=== PATIENT | female | born 1985 | race American Indian/Alaskan Native ===

== ENCOUNTER 2016-09-30 09:17 | Observation (INO) | payer MEDICARE, OTHER ==
[2016-09-30 09:43] VITALS: BMI 36.3
[2016-09-30] MEDS ORDERED: ceFAZolin IV 1 gm in Dextrose 1 GM/50 ML BAG IVPB ONE ×2 (10:46→12:43)
[2016-09-30] MEDS ORDERED: HEPARIN-NS 5,000 UNITS/500 ML 5,000 UNIT/500 ML BAG IV ONE (10:46)
[2016-09-30] MEDS ORDERED: Lidocaine 1% Inj (20ml) ONE (10:46)
[2016-09-30 10:52] LABS: CALCIUM 8.8 mg/dl (8.6-10.4)
[2016-09-30] MEDS ORDERED: Propofol 10 mg/ml Inj (20 ML) ONE (12:20)
[2016-09-30] MEDS ORDERED: Midazolam 2 MG/2 ML VIAL ONE (12:20)
[2016-09-30] MEDS ORDERED: Neostigmine Methylsulfate 3mg/3ml Syringe IV ONE (13:38)
[2016-09-30] MEDS ORDERED: Phenylephrine 10 mg/ml Inj ONE (13:42)
[2016-09-30] MEDS ORDERED: ceFAZolin IV 1 gm in Dextrose 2 GM/100 ML BAG IVPB ONE (13:42)
[2016-09-30] MEDS ORDERED: Protamine 50mg/5mL Inj IV ONE (15:10)
[2016-09-30] MEDS ORDERED: Sodium Chloride 0.9% 1,000 ML IV ONE (15:30)
[2016-09-30] MEDS ORDERED: HYDROmorphone 0.5 mg/0.5 ml ISec IVP PRN (15:51)
[2016-09-30] MEDS: Sodium Chloride 0.9% 1,000 ML IV SCH (18:55)
[2016-09-30] MEDS: Oxycodone/Acetaminophen 5/325 mg Tab PO PRN (19:31)
[2016-09-30] MEDS: Enoxaparin 30 mg Syringe SC SCH (21:15)
[2016-10-01] MEDS: Oxycodone/Acetaminophen 5/325 mg Tab PO PRN ×2 (00:18→08:43)
[2016-10-01 01:05] VITALS: RESP 20
--- NOTE | 2016-10-01 01:51 | CP.PCM.CON ---
History of Present Illness - History of Present Illness History of Present Illness: 31 Y/O AUTISTIC BF WITH HTN ESRD AND SHE WAS ADMITTED FOR AV FISTULA AND SHE IS POST OP, AND HAS PAIN AT POST OP SITE, NO FEVER, NO SOB Review of Systems - Review of Systems Systems not reviewed;Unavailable: Uncooperative Past Patient History - Past Medical History & Family History Past Medical History?: Yes - Past Social History Smoking Status: Never Smoked - CARDIAC Hx Cardiac Disorders: Yes Hx Hypertension: Yes - PULMONARY Hx Respiratory Disorders: No - NEUROLOGICAL Hx Neurological Disorder: Yes (AUTISM) - HEENT Hx HEENT Problems: No - RENAL Hx Chronic Kidney Disease: Yes Hx Renal Failure: Yes - ENDOCRINE/METABOLIC Hx Endocrine Disorders: No - HEMATOLOGICAL/ONCOLOGICAL Hx Blood Disorders: No - INTEGUMENTARY Hx Dermatological Problems: No - MUSCULOSKELETAL/RHEUMATOLOGICAL Hx Falls: No - GASTROINTESTINAL Hx Gastrointestinal Disorders: No - GENITOURINARY/GYNECOLOGICAL Hx Genitourinary Disorders: No Other/Comment: history of occassional urinary retention - PSYCHIATRIC Hx Substance Use: No - SURGICAL HISTORY Hx Surgeries: Yes Other/Comment: A/V FISTULA LEFT ARM - ANESTHESIA Hx Anesthesia: Yes Hx Anesthesia Reactions: No Hx Malignant Hyperthermia: No Has any member of the family had a problem w/ anesthesia?: No Meds Allergies/Adverse Reactions: Allergies Allergy/AdvReac Type Severity Reaction Status Date / Time No Known Allergies Allergy Verified 09/20/16 12:27 - Medications Medications: Current Medications Amlodipine Besylate (Norvasc) 5 mg PO DAILY [facility] Docusate Sodium (Colace) 100 mg PO BID [facility] Last Admin: 09/30/16 19:33 Dose: Not Given Enoxaparin Sodium (Lovenox) 30 mg SC 1000,2200 [facility] Last Admin: 09/30/16 21:15 Dose: 30 mg Famotidine (Pepcid) 20 mg PO DAILY [facility] Ferrous Sulfate (Feosol) 325 mg PO DAILY [facility] Sodium Chloride (Sodium Chloride 0.9%) 1,000 mls @ 50 mls/hr IV .Q20H [facility] Last Admin: 09/30/16 18:55 Dose: 50 mls/hr Oxycodone/Acetaminophen (Percocet 5/325 Mg Tab) 2 tab PO Q4H PRN PRN Reason: pain Stop: 10/03/16 15:55 Last Admin: 10/01/16 00:18 Dose: 2 tab Pneumococcal Polyvalent Vaccine (Pneumovax 23 Vaccine) 0.5 ml IM .ONCE ONE Stop: 10/03/16 10:01 Sodium Bicarbonate (Sodium Bicarbonate Tab) 1,300 mg PO TID [facility] Last Admin: 09/30/16 07:30 Dose: 1,300 mg Physical Exam - Head Exam Head Exam: ATRAUMATIC, NORMAL INSPECTION, NORMOCEPHALIC - Eye Exam Eye Exam: EOMI, Normal appearance, PERRL Pupil Exam: NORMAL ACCOMODATION - ENT Exam ENT Exam: Mucous Membranes Moist, Normal Exam, Normal Oropharynx, TM's Normal Bilaterally - Neck Exam Neck exam: Positive for: Normal Inspection - Respiratory Exam Respiratory Exam: Clear to Auscultation Bilateral, NORMAL BREATHING PATTERN - Cardiovascular Exam Cardiovascular Exam: REGULAR RHYTHM, +S1, +S2 - GI/Abdominal Exam GI & Abdominal Exam: Normal Bowel Sounds - Rectal Exam Rectal Exam: NORMAL INSPECTION - Extremities Exam Extremities exam: Positive for: normal capillary refill, normal inspection, pedal edema, pedal pulses present - Neurological Exam Neurological exam: Alert, CN II-XII Intact, Reflexes Normal - Psychiatric Exam Psychiatric exam: Flat Affect - Skin Skin Exam: Intact Results - Vital Signs Recent Vital Signs: Last Vital Signs Temp 99.5 F 10/01/16 00:00 Pulse 81 10/01/16 00:00 Resp 20 10/01/16 00:00 BP 121/83 10/01/16 00:00 Pulse Ox 98 10/01/16 00:00 - Labs Result Diagrams: 09/30/16 10:38 Labs: Laboratory Results - last 24 hr 09/30/16 10:38 Sodium 142 Potassium 4.0 Chloride 109 H Carbon Dioxide 19 L Anion Gap 18 BUN 51 H Creatinine 3.6 H Est GFR ( Amer) 18 Est GFR (Non-Af Amer) 15 Random Glucose 85 Calcium 8.8 Assessment & Plan (1) ESRD (end stage renal disease) Status: Chronic Priority: High (2) Hypertension Status: Chronic Priority: Medium (3) Autism Status: Chronic Priority: Low
[2016-10-01 06:24] LABS: BASO % 0.4 % (0.0-2.0); EOS % 0.7 % (0.0-4.0); HEMATOCRIT 29.9 % (34.0-47.0); LYMPH # 1.7 K/uL (1.0-4.3); LYMPH % 23.2 % (20.0-40.0); MEAN CORPUSCULAR HEMOGLOBIN 30.4 pg (27.0-31.0); MEAN CORPUSCULAR HGB CONC 33.4 g/dL (33.0-37.0); MEAN PLATELET VOLUME 7.1 fL (7.2-11.7); MONO # 0.4 K/uL (0.0-0.8); MONO % 5.9 % (0.0-10.0); RED CELL DISTRIBUTION WIDTH 15.8 % (11.5-14.5); WHITE BLOOD COUNT 7.3 K/uL (4.8-10.8)
--- NOTE | 2016-10-01 06:48 | OP ---
PROCEDURE DATE: 09/30/2016 PREOPERATIVE DIAGNOSIS: Chronic renal failure. POSTOPERATIVE DIAGNOSIS: Chronic renal failure. PROCEDURE: 1. Left arm basilic vein transposition, (15856). 2. Left brachial artery endarterectomy. 3. Adjacent tissue transfer closure greater than 30 sq. cm (35186). SURGEON: Dr. Everett. ANESTHESIA: General endotracheal. ESTIMATED BLOOD LOSS: 80 mL. POSTOPERATIVE CONDITION: Stable. INDICATIONS FOR SURGERY: This is a 31-year-old female with chronic obstructive uropathy, renal failure and now is in need of hemodialysis. She will undergo a left arm basilic vein transposition for dialysis access today. GROSS FINDINGS: The basilic vein was adequate for grafting, even now it split the mid portion. There was atherosclerotic debris within the brachial artery which was removed via modified endarterectomy fashion. Brachial artery was noted to be a very small caliber. DESCRIPTION OF PROCEDURE: The patient was taken to the operating room, general anesthesia was administered. The left arm was prepped and draped from the shoulder to the hand. An incision was made in the axilla and the axillary vein was dissected free and the basilic vein was then dissected free into the elbow. All branches were ligated with silk. Once it had been completely dissected free, we transected distally, removed and flushed with heparinized saline and dilated. It was wrapped in a lapped, soaked in heparinized saline and the arm incisions were closed in layers with multiple layers of heavy Monocryl, subcuticular Monocryl and clips. Due to the large amount of space, an adjacent tissue transfer closure method was utilized by widely undermining and this was greater than 30 sq. cm. Once the wounds have been closed, an incision was made over the brachial artery and the brachial artery was carefully and meticulously dissected free. It was noted to lie deep within the brachial fossa and also there is a very small caliber. The vein was then tunneled into the brachial wound and heparin was administered. The artery was clamped and opened. The atherosclerotic debri was identified and removed with modified endarterectomy fashion. Next, the anastomosis was performed using 6-0 Prolene suture. There was triphasic flow within the vein at the closure of the procedure. The wounds were irrigated with saline and closed with Vicryl and skin clips. The patient tolerated the procedure well and returned to the recovery room in stable condition. Mauri Everett MD [facility] # [id number]
[2016-10-01 06:51] LABS: ALB/GLOB RATIO 0.8 (1.0-2.1); BILIRUBIN,TOTAL 0.4 mg/dL (0.2-1.3); CALCIUM 8.2 mg/dl (8.6-10.4); TOTAL PROTEIN 7.4 g/dL (6.3-8.3)
[2016-10-01] MEDS: Enoxaparin 30 mg Syringe SC SCH (09:42)
--- NOTE | 2016-10-01 11:05 | CP.PCM.CON ---
History of Present Illness - History of Present Illness History of Present Illness: 31 y/o female with Stage 1V kidney disease, HTN & Autism was admitted yesterday for creation of AVF Renal consult is requested for management of chronic kidney disease. Past Patient History - Past Medical History & Family History Past Medical History?: Yes - Past Social History Smoking Status: Never Smoked - CARDIAC Hx Cardiac Disorders: Yes Hx Hypertension: Yes - PULMONARY Hx Respiratory Disorders: No - NEUROLOGICAL Hx Neurological Disorder: Yes (AUTISM) - HEENT Hx HEENT Problems: No - RENAL Hx Chronic Kidney Disease: Yes Hx Renal Failure: Yes - ENDOCRINE/METABOLIC Hx Endocrine Disorders: No - HEMATOLOGICAL/ONCOLOGICAL Hx Blood Disorders: No - INTEGUMENTARY Hx Dermatological Problems: No - MUSCULOSKELETAL/RHEUMATOLOGICAL Hx Falls: No - GASTROINTESTINAL Hx Gastrointestinal Disorders: No - GENITOURINARY/GYNECOLOGICAL Hx Genitourinary Disorders: No Other/Comment: history of occassional urinary retention - PSYCHIATRIC Hx Substance Use: No - SURGICAL HISTORY Hx Surgeries: Yes Other/Comment: A/V FISTULA LEFT ARM - ANESTHESIA Hx Anesthesia: Yes Hx Anesthesia Reactions: No Hx Malignant Hyperthermia: No Has any member of the family had a problem w/ anesthesia?: No Meds Allergies/Adverse Reactions: Allergies Allergy/AdvReac Type Severity Reaction Status Date / Time No Known Allergies Allergy Verified 09/20/16 12:27 - Medications Medications: Current Medications Amlodipine Besylate (Norvasc) 5 mg PO DAILY [facility] Last Admin: 10/01/16 09:42 Dose: 5 mg Docusate Sodium (Colace) 100 mg PO BID [facility] Last Admin: 10/01/16 09:43 Dose: Not Given Enoxaparin Sodium (Lovenox) 30 mg SC 1000,2200 [facility] Last Admin: 10/01/16 09:42 Dose: 30 mg Famotidine (Pepcid) 20 mg PO DAILY [facility] Last Admin: 10/01/16 09:42 Dose: 20 mg Ferrous Sulfate (Feosol) 325 mg PO DAILY [facility] Last Admin: 10/01/16 09:41 Dose: 325 mg Sodium Chloride (Sodium Chloride 0.9%) 1,000 mls @ 50 mls/hr IV .Q20H [facility] Last Admin: 09/30/16 18:55 Dose: 50 mls/hr Oxycodone/Acetaminophen (Percocet 5/325 Mg Tab) 2 tab PO Q4H PRN PRN Reason: pain Stop: 10/03/16 15:55 Last Admin: 10/01/16 08:43 Dose: 2 tab Pneumococcal Polyvalent Vaccine (Pneumovax 23 Vaccine) 0.5 ml IM .ONCE ONE Stop: 10/03/16 10:01 Sodium Bicarbonate (Sodium Bicarbonate Tab) 1,300 mg PO TID [facility] Last Admin: 10/01/16 09:42 Dose: 1,300 mg Physical Exam - Constitutional Appears: No Acute Distress Additional comments: 31 y/o female in NAD. Pain is much less today - Head Exam Head Exam: ATRAUMATIC, NORMOCEPHALIC - Eye Exam Additional comments: no icterus - ENT Exam ENT Exam: Mucous Membranes Moist - Neck Exam Additional comments: Neck supple - Respiratory Exam Respiratory Exam: NORMAL BREATHING PATTERN Additional comments: Lungs clear - Cardiovascular Exam Cardiovascular Exam: REGULAR RHYTHM Additional comments: No rub or gallop - GI/Abdominal Exam GI & Abdominal Exam: Firm Additional comments: Abd nontenderpedal edema. Lt arm dressing C&D Lt hand is warm. + bruit Results - Vital Signs Recent Vital Signs: Last Vital Signs Temp 98.8 F 10/01/16 07:36 Pulse 98 H 10/01/16 07:36 Resp 20 10/01/16 07:36 BP 140/88 10/01/16 09:35 Pulse Ox 98 10/01/16 07:36 - Labs Result Diagrams: 10/01/16 06:15 10/01/16 06:15 Labs: Laboratory Results - last 24 hr 10/01/16 10/01/16 06:15 06:15 WBC 7.3 RBC 3.28 L Hgb 10.0 L Hct 29.9 L MCV 91.0 MCH 30.4 MCHC 33.4 RDW 15.8 H Plt Count 348 MPV 7.1 L Neut % (Auto) 69.8 Lymph % (Auto) 23.2 Taylor % (Auto) 5.9 Eos % (Auto) 0.7 Baso % (Auto) 0.4 Neut # 5.1 Lymph # 1.7 Taylor # 0.4 Eos # 0.0 Baso # 0.0 Sodium 141 Potassium 4.0 Chloride 110 H Carbon Dioxide 18 L Anion Gap 17 BUN 47 H Creatinine 3.7 H Est GFR ( Amer) 17 Est GFR (Non-Af Amer) 14 Random Glucose 101 Calcium 8.2 L Total Bilirubin 0.4 AST 17 ALT 15 Alkaline Phosphatase 65 Total Protein 7.4 Albumin 3.2 L Globulin 4.2 H Albumin/Globulin Ratio 0.8 L Assessment & Plan - Assessment and Plan (Free Text) Assessment: S/P creation of Lt arm AVF ( brachial v. transposition) Stage 1V kidney dise appears kory stable HTN stable Hb is stable Plan: Continue current antihypertensives & monitor BP Continue with sod bicarb & monitor Hb
[2016-10-01] MEDS: Sodium Chloride 0.9% 1,000 ML IV SCH (12:12)
[2016-10-01] MEDS ORDERED: Enoxaparin 30 mg Syringe SC SCH (22:00)
--- NOTE | 2016-10-02 01:22 | CP.PCM.PN ---
Subjective - Date & Time of Evaluation Date of Evaluation: 10/01/16 Time of Evaluation: 20:36 - Subjective Subjective: FEELS BETTER, NO SOB, SEEN BY RENAL, NO CHEST PAIN, POST OP PAIN, NO FEVER Objective - Vital Signs/Intake and Output Vital Signs (last 24 hours): Temp Pulse Resp BP Pulse Ox 98 F 104 H 20 143/98 H 97 10/02/16 00:00 10/02/16 00:00 10/02/16 00:00 10/02/16 00:00 10/02/16 00:00 Intake and Output: 10/01/16 10/02/16 18:59 06:59 Intake Total 650 700 Balance 650 700 - Medications Medications: Current Medications Amlodipine Besylate (Norvasc) 5 mg PO DAILY [facility] Last Admin: 10/01/16 09:42 Dose: 5 mg Docusate Sodium (Colace) 100 mg PO BID [facility] Last Admin: 10/01/16 18:14 Dose: 100 mg Enoxaparin Sodium (Lovenox) 30 mg SC Q24H [facility] Last Admin: 10/01/16 22:55 Dose: 30 mg Famotidine (Pepcid) 20 mg PO DAILY [facility] Last Admin: 10/01/16 09:42 Dose: 20 mg Ferrous Sulfate (Feosol) 325 mg PO DAILY [facility] Last Admin: 10/01/16 09:41 Dose: 325 mg Sodium Chloride (Sodium Chloride 0.9%) 1,000 mls @ 50 mls/hr IV .Q20H [facility] Last Admin: 10/01/16 12:12 Dose: 50 mls/hr Pneumococcal Polyvalent Vaccine (Pneumovax 23 Vaccine) 0.5 ml IM .ONCE ONE Stop: 10/03/16 10:01 Sodium Bicarbonate (Sodium Bicarbonate Tab) 1,300 mg PO TID [facility] Last Admin: 10/01/16 18:14 Dose: 1,300 mg Tramadol HCl (Ultram) 50 mg PO TID PRN - Labs Labs: 10/01/16 06:15 10/01/16 06:15 - Constitutional Appears: Non-toxic, No Acute Distress - Head Exam Head Exam: ATRAUMATIC, NORMAL INSPECTION, NORMOCEPHALIC - Eye Exam Eye Exam: Normal appearance, PERRL Pupil Exam: NORMAL ACCOMODATION - Neck Exam Neck Exam: Normal Inspection - Respiratory Exam Respiratory Exam: Clear to Ausculation Bilateral, NORMAL BREATHING PATTERN - Cardiovascular Exam Cardiovascular Exam: REGULAR RHYTHM, +S1, +S2 - GI/Abdominal Exam GI & Abdominal Exam: Soft, Normal Bowel Sounds - Rectal Exam Rectal Exam: NORMAL INSPECTION - Extremities Exam Extremities Exam: Normal Capillary Refill, Pedal Edema - Neurological Exam Neurological Exam: Alert, Awake Neuro motor strength exam: Left Upper Extremity: 5, Right Upper Extremity: 5, Left Lower Extremity: 5, Right Lower Extremity: 5 Assessment and Plan (1) ESRD (end stage renal disease) Assessment & Plan: FOR HD Status: Chronic (2) Hypertension Status: Chronic (3) Autism Status: Chronic
[2016-10-02 09:07] VITALS: BP 145/99; PULSE 90; TEMP 99.7; O2SAT 96
[2016-10-02] MEDS: Sodium Chloride 0.9% 1,000 ML IV SCH (09:41)
--- NOTE | 2016-10-02 23:14 | CP.PCM.PN ---
Subjective - Date & Time of Evaluation Date of Evaluation: 10/02/16 Time of Evaluation: 11:07 - Subjective Subjective: no changes, no fever, no sob Objective - Vital Signs/Intake and Output Vital Signs (last 24 hours): Temp Pulse Resp BP Pulse Ox 99.7 F H 90 20 145/99 H 96 10/02/16 09:05 10/02/16 09:05 10/02/16 09:05 10/02/16 09:05 10/02/16 09:05 Intake and Output: 10/02/16 10/03/16 18:59 06:59 Intake Total 920 Balance 920 - Labs Labs: 10/01/16 06:15 10/01/16 06:15 - Constitutional Appears: Non-toxic, No Acute Distress - Head Exam Head Exam: NORMAL INSPECTION, NORMOCEPHALIC - Eye Exam Eye Exam: EOMI, Normal appearance, PERRL Pupil Exam: NORMAL ACCOMODATION - ENT Exam ENT Exam: Mucous Membranes Moist, Normal Exam - Cardiovascular Exam Cardiovascular Exam: REGULAR RHYTHM, +S1, +S2 - GI/Abdominal Exam GI & Abdominal Exam: Normal Bowel Sounds - Neurological Exam Neurological Exam: Alert, Awake Neuro motor strength exam: Left Upper Extremity: 5, Right Upper Extremity: 5, Left Lower Extremity: 5, Right Lower Extremity: 5 Assessment and Plan (1) ESRD (end stage renal disease) Status: Chronic (2) Hypertension Status: Chronic (3) Autism Status: Chronic
[2016-10-03] MEDS ORDERED: Pneumococcal 23-Valent Vaccine IM ONE (10:00)
== END 2016-10-02 12:00 | disposition home or self-care (01) ==
LOC: C.SDS 09:17 → C.9E 15:54 → INTOOBSV 15:54 → C.3T 16:28
PROVIDERS: ADMIT Surgery; ATTEND Surgery
PROC: 03C80ZZ Extirpation of Matter from Left Brachial Artery, Open Approach (ICD-10-PCS; 2016-09-30)
PROC: 03180ZF Bypass Left Brachial Artery to Lower Arm Vein, Open Approach (ICD-10-PCS; principal; 2016-09-30 10:30)
DX: I12.0 Hypertensive chronic kidney disease with stage 5 chronic kidney disease or end stage renal disease (principal); N18.6 End stage renal disease; F84.0 Autistic disorder; N13.9 Obstructive and reflux uropathy, unspecified; I70.208 Unspecified atherosclerosis of native arteries of extremities, other extremity
CPT/HCPCS: 14301; 35321; 36415; 36819; 80048; 80053; 85025; 96372; G0365; G0378; J0690; J1170; J1650; J2250; J2370; J2704; J2710; J2720; J3010; J7040

== ENCOUNTER 2016-10-18 10:32 | Inpatient (IN) | payer MEDICARE, OTHER ==
[2016-10-18 10:33] VITALS: BMI 36.3
--- NOTE | 2016-10-18 11:59 | C.PDOC ---
History Of Present Illness 31 y/o female was sent to ED for evaluation of a left upper arm wound dehiscence. Patient is s/p surgery with Dr. Everett on the for an A/V fistula. Went to the office recently and the wound had dehisced, so she was sent to ED for admission (for OR) . Patient denies fever, pain at site, discharge. PMD: [place] Time Seen by Provider: 10/18/16 11:02 Chief Complaint (Nursing): Abnormal Skin Integrity History Per: Patient History/Exam Limitations: no limitations Onset/Duration Of Symptoms: Days Current Symptoms Are (Timing): Still Present Severity: Mild Past Medical History Reviewed: Historical Data, Nursing Documentation, Vital Signs Vital Signs: Last Vital Signs Temp 98.4 F 10/20/16 08:00 Pulse 89 10/20/16 08:00 Resp 20 10/20/16 08:00 BP 152/103 H 10/20/16 08:00 Pulse Ox 100 10/22/16 11:36 - Medical History PMH: Anxiety, HTN, Chronic Kidney Disease - [facility] Procedures BYPASS LEFT BRACHIAL ARTERY TO LOWER ARM VEIN, OPEN APPROACH (09/30/16) EXTIRPATION OF MATTER FROM L BRACH ART, OPEN APPROACH (09/30/16) REVISION OF AUTOL SUB IN LOW ART, OPEN APPROACH (10/18/16) TRANSFER LEFT LOWER ARM SKIN, EXTERNAL APPROACH (10/18/16) Family History: States: No Known Family Hx - Social History Hx Alcohol Use: No Hx Substance Use: No - Immunization History Hx Tetanus Toxoid Vaccination: Yes Hx Influenza Vaccination: No Hx Pneumococcal Vaccination: No Review Of Systems Except As Marked, All Systems Reviewed And Found Negative. Constitutional: Negative for: Fever, Other (Pain) Cardiovascular: Negative for: Chest Pain Respiratory: Negative for: Shortness of Breath Gastrointestinal: Negative for: Nausea, Vomiting Skin: Positive for: Other (wound dehiscence at left upper arm surgical site, no drainage). Negative for: Rash Physical Exam - Physical Exam Appears: Well, Non-toxic, No Acute Distress, Other (Obese) Skin: Warm, Dry, Other (Left medial upper arm has a large healing surgical wound. at the distal aspect, there is an approx 3 cm wound dehiscence. Mild surrounding erythema. Yellow granulation tissue visualized, no obvious discharge ) Eye(s): bilateral: Normal Inspection Oral Mucosa: Moist Neck: Normal Cardiovascular: Rhythm Regular, No Murmur Respiratory: Normal Breath Sounds, No Rales, No Rhonchi, No Wheezing Gastrointestinal/Abdominal: Normal Exam, Bowel Sounds, Soft, No Tenderness Extremity: Normal ROM, Capillary Refill (< 2 sec all digits ) Pulses: Left Radial: Normal, Right Radial: Normal DTR: Bicep (L): 0 Neurological/Psych: Oriented x3 Gait: Steady ED Course And Treatment - Laboratory Results Result Diagrams: 10/19/16 07:13 10/19/16 07:13 O2 Sat by Pulse Oximetry: 100 (RA) Pulse Ox Interpretation: Normal Progress Note: 11:38. As per Rx with patient, only UPreg needed at this time, blood work was done recently. Patient will be admitted under the service of Dr. Everett, and will be sent to OR. Dr. Everett requests Nephrology and Internal Medicine consults - entered. Disposition - Disposition Disposition: HOSPITALIZED Disposition Time: 12:05 Condition: STABLE - Clinical Impression Clinical Impression: Wound dehiscence, ESRD (end stage renal disease), ESRD on hemodialysis - Scribe Statement The provider has reviewed the documentation as recorded by the Scribe Rissa Gross All medical record entries made by the Scribe were at my direction and personally dictated by me. I have reviewed the chart and agree that the record accurately reflects my personal performance of the history, physical exam, medical decision making, and the department course for this patient. I have also personally directed, reviewed, and agree with the discharge instructions and disposition. Decision To Admit - Pt Status Changed To: Hospital Disposition Of: Inpatient - Admit Certification Admit to Inpatient:: After my assessment, the patient will require hospitalization for at least two midnights. This is because of the severity of symptoms shown, intensity of services needed, and/or the medical risk in this patient being treated as an outpatient. - InPatient: Physician Admission Certification: I certify that this patient requires 2 or more midnights of care for the following reason:: see notes - . Bed Request Type: Regular Admitting Physician: Mauri Everett Patient Diagnosis: Wound dehiscence, ESRD (end stage renal disease), ESRD on hemodialysis
[2016-10-18 12:01] LABS: RBC URINE 28 /hpf (0-3); URINE BACTERIA OCC (<OCC); URINE BILIRUBIN NEGATIVE (NEGATIVE); URINE BLOOD 2+ (NEGATIVE); URINE COLOR Yellow (YELLOW); URINE GLUCOSE (UA) NORMAL (Normal); URINE KETONE NEGATIVE (NEGATIVE); URINE LEUKOCYTE ESTERASE 3+ Leu/uL (Negative); URINE PROTEIN 1+ mg/dL (NEGATIVE); URINE UROBILINOGEN NORMAL mg/dL (0.2-1.0); WBC URINE 141 /hpf (0-5)
--- NOTE | 2016-10-18 12:05 | C.PDOC ---
Time Seen by Provider: 10/18/16 11:02 Chief Complaint (Nursing): Abnormal Skin Integrity Past Medical History Vital Signs: Last Vital Signs Temp 98.4 F 10/18/16 10:36 Pulse 88 10/18/16 10:36 Resp 16 10/18/16 10:36 BP 147/98 H 10/18/16 10:36 Pulse Ox 100 10/18/16 10:36 - Medical History PMH: Anxiety, HTN, Chronic Kidney Disease - [facility] Procedures BYPASS LEFT BRACHIAL ARTERY TO LOWER ARM VEIN, OPEN APPROACH (09/30/16) EXTIRPATION OF MATTER FROM L BRACH ART, OPEN APPROACH (09/30/16) - Social History Hx Alcohol Use: No Hx Substance Use: No - Immunization History Hx Tetanus Toxoid Vaccination: Yes Hx Influenza Vaccination: No Hx Pneumococcal Vaccination: No ED Course And Treatment O2 Sat by Pulse Oximetry: 100 Disposition - Disposition Forms: [employer] ([employer]ik)
[2016-10-18] MEDS ORDERED: Propofol 10 mg/ml Inj (20 ML) ONE (12:30)
[2016-10-18] MEDS ORDERED: Lactated Ringer's 1,000 ML IV ONE (12:30)
[2016-10-18] MEDS ORDERED: Midazolam 2 MG/2 ML VIAL ONE (12:30)
[2016-10-18] MEDS ORDERED: Sodium Chloride 0.9% 1,000 ML IV ONE (12:30)
[2016-10-18] MEDS ORDERED: Vancomycin 1 gm/D5W 200 ml 1 GM/200 ML BAG IVPB ONE (12:40)
[2016-10-18] MEDS ORDERED: Bacitracin 500 Units/gm Oint Foilpak UD ONE (13:10)
[2016-10-18] MEDS ORDERED: HYDROmorphone 0.5 mg/0.5 ml ISec IVP PRN ×2 (13:12→13:25)
[2016-10-18] MEDS ORDERED: Acetaminophen-Codeine 300/30 mg Tab PO PRN (13:19)
[2016-10-18] MEDS ORDERED: HYDROmorphone 1 mg/ml ISec ONE (15:16)
[2016-10-18] MEDS ORDERED: Tramadol 25 mg PO SCH (18:00)
[2016-10-18] MEDS: Tramadol 25 mg PO PRN ×2 (18:13→21:49)
--- NOTE | 2016-10-18 20:14 | CP.PCM.CON ---
History of Present Illness - History of Present Illness History of Present Illness: 31 y/o WITH AUTISM AND HTN, CKD, FOR HD AND SHE HAD AN AV FISTULA NOW SHE HAS INFECTION AND SHE UNDERWENT OR WITH [facility]. Review of Systems - Gastrointestinal Gastrointestinal: Bloating Past Patient History - Past Medical History & Family History Past Medical History?: Yes - Past Social History Smoking Status: Never Smoked - CARDIAC Hx Hypertension: Yes - PULMONARY Hx Respiratory Disorders: No - NEUROLOGICAL Hx Neurological Disorder: Yes (AUTISM) - HEENT Hx HEENT Problems: No - RENAL Hx Chronic Kidney Disease: Yes Type of Dialysis Access: Left Arm AV Shunt - ENDOCRINE/METABOLIC Hx Endocrine Disorders: No - HEMATOLOGICAL/ONCOLOGICAL Hx Blood Disorders: No - INTEGUMENTARY Hx Dermatological Problems: No - MUSCULOSKELETAL/RHEUMATOLOGICAL Hx Falls: No - GASTROINTESTINAL Hx Gastrointestinal Disorders: No - GENITOURINARY/GYNECOLOGICAL Hx Genitourinary Disorders: No - PSYCHIATRIC Hx Anxiety: Yes Hx Substance Use: No - SURGICAL HISTORY Hx Surgeries: Yes Other/Comment: A/V FISTULA LEFT ARM - ANESTHESIA Hx Anesthesia: Yes Hx Anesthesia Reactions: No Hx Malignant Hyperthermia: No Has any member of the family had a problem w/ anesthesia?: No Meds Allergies/Adverse Reactions: Allergies Allergy/AdvReac Type Severity Reaction Status Date / Time No Known Allergies Allergy Verified 10/18/16 10:42 - Medications Medications: Current Medications Amlodipine Besylate (Norvasc) 1 mg PO DAILY [facility] Calcitriol (Rocaltrol) 0.25 mcg PO BID [facility] Docusate Sodium (Colace) 100 mg PO BID [facility] Last Admin: 10/18/16 18:14 Dose: 100 mg Enoxaparin Sodium (Lovenox) 30 mg SC Q24H [facility] Enoxaparin Sodium (Lovenox) 30 mg SC ONCE ONE Stop: 10/18/16 22:01 Famotidine (Pepcid) 20 mg IVP DAILY [facility] Ferrous Sulfate (Feosol) 1 mg PO DAILY [facility] Ondansetron HCl (Zofran Inj) 4 mg IVP Q6 PRN PRN Reason: Nausea/Vomiting Tramadol HCl (Ultram) 25 mg PO TID PRN PRN Reason: Pain, moderate (4-7) Last Admin: 10/18/16 18:13 Dose: 25 mg Physical Exam - Head Exam Head Exam: ATRAUMATIC, NORMAL INSPECTION, NORMOCEPHALIC - Eye Exam Eye Exam: EOMI, Normal appearance, PERRL Pupil Exam: NORMAL ACCOMODATION - ENT Exam ENT Exam: Mucous Membranes Moist, Normal Exam, Normal Oropharynx, TM's Normal Bilaterally - Neck Exam Neck exam: Positive for: Normal Inspection - Respiratory Exam Respiratory Exam: Clear to Auscultation Bilateral, NORMAL BREATHING PATTERN - Cardiovascular Exam Cardiovascular Exam: REGULAR RHYTHM, +S1, +S2 - GI/Abdominal Exam GI & Abdominal Exam: Normal Bowel Sounds - Rectal Exam Rectal Exam: NORMAL INSPECTION - Extremities Exam Extremities exam: Positive for: normal capillary refill, normal inspection - Back Exam Back exam: FULL ROM, NORMAL INSPECTION - Neurological Exam Neurological exam: Alert, CN II-XII Intact, Reflexes Normal - Psychiatric Exam Psychiatric exam: Flat Affect Results - Vital Signs Recent Vital Signs: Last Vital Signs Temp 98.4 F 10/18/16 17:22 Pulse 81 10/18/16 17:22 Resp 18 10/18/16 17:22 BP 138/93 H 10/18/16 17:22 Pulse Ox 98 10/18/16 17:22 Assessment & Plan (1) Autism Status: Chronic Priority: Low (2) ESRD (end stage renal disease) Status: Chronic Priority: High (3) Hypertension Status: Chronic Priority: Medium (4) Post-operative infection Assessment and Plan: S/P OR Status: Acute Priority: High
[2016-10-18] MEDS ORDERED: Enoxaparin 30 mg Syringe SC ONE (22:00)
--- NOTE | 2016-10-19 01:37 | OP ---
PROCEDURE DATE: 10/18/2016 PREOPERATIVE DIAGNOSIS: Dehiscence with wound infection of left arm, basilic vein transposition brachial wound. POSTOPERATIVE DIAGNOSIS: Dehiscence with wound infection of left arm, basilic vein transposition brachial wound. PROCEDURE PERFORMED: 1. Reopening of wound with debridement and drainage of wound abscess (66461). 2. Revision of arteriovenous fistula (65793). 3. 20 sq cm adjacent tissue transfer closure (52243). SURGEON: Dr. Everett. ANESTHESIA: General. BLOOD LOSS: 30 mL. POSTOP CONDITION: Stable. INDICATIONS FOR SURGERY: Patient is a 31-year-old female with a functioning left arm fistula, who is obese and developed some wound complications in the brachial wound of her left arm fistula. She is admitted to the hospital for operative treatment and possible revision of the fistula. GROSS FINDINGS: There was a small collection beneath the dehiscence which was drained and cultured. The anastomosis was involved and a revision had to be performed and after adequate debridement and pulse irrigation, an adjacent tissue transfer closure was utilized to close the wound completely. PROCEDURE: The patient was taken to the operating room. General anesthesia was administered. The left arm was prepped and draped. All the clips were removed from the arm area, and the dehisced wound was further opened and debrided. Collection was drained and cultured. The wound was again aggressively debrided of all necrotic tissue and left basically wide opened. Bleeding was noted from the anastomotic site and using a 6-0 Prolene, a revision of the anastomosis was performed. The wound was pulse irrigated with saline and Kantrex solution. Generous tissue flaps were raised using a Bovie and a 20 sq cm adjacent tissue closure was performed using multiple layers of heavy Monocryl and subcuticular Monocryl and skin was closed. The patient tolerated the procedure well and returned to the recovery room in stable condition. Mauri Everett MD
[2016-10-19 07:27] LABS: BASO % 0.4 % (0.0-2.0); EOS # 0.1 K/uL (0.0-0.7); EOS % 1.2 % (0.0-4.0); HEMATOCRIT 31.6 % (34.0-47.0); LYMPH # 1.4 K/uL (1.0-4.3); LYMPH % 22.2 % (20.0-40.0); MEAN CELL VOLUME 90.7 fL (81.0-99.0); MEAN CORPUSCULAR HEMOGLOBIN 29.6 pg (27.0-31.0); MEAN CORPUSCULAR HGB CONC 32.6 g/dL (33.0-37.0); MONO # 0.5 K/uL (0.0-0.8); MONO % 7.6 % (0.0-10.0); RED CELL DISTRIBUTION WIDTH 15.5 % (11.5-14.5); WHITE BLOOD COUNT 6.1 K/uL (4.8-10.8)
[2016-10-19 07:49] LABS: POTASSIUM 4.4 mmol/L (3.6-5.2)
[2016-10-19 07:50] VITALS: RESP 20
[2016-10-19 07:53] LABS: CALCIUM 9.4 mg/dl (8.6-10.4)
--- NOTE | 2016-10-19 11:28 | CP.PCM.CON ---
History of Present Illness - History of Present Illness History of Present Illness: 31 y/o female with Hx/o Stage 1V/V kidney dis, HTN, Autism is admitted for tom; uation of infected Lt arm AV shunt which was placed on 09/30/2016 According to family Pt feels OK. her appetite is good No hx/o fever or chills Past Patient History - Past Medical History & Family History Past Medical History?: Yes - Past Social History Smoking Status: Never Smoked - CARDIAC Hx Hypertension: Yes - PULMONARY Hx Respiratory Disorders: No - NEUROLOGICAL Hx Neurological Disorder: Yes (AUTISM) - HEENT Hx HEENT Problems: No - RENAL Hx Chronic Kidney Disease: Yes Type of Dialysis Access: Left Arm AV Shunt - ENDOCRINE/METABOLIC Hx Endocrine Disorders: No - HEMATOLOGICAL/ONCOLOGICAL Hx Blood Disorders: No - INTEGUMENTARY Hx Dermatological Problems: No - MUSCULOSKELETAL/RHEUMATOLOGICAL Hx Falls: No - GASTROINTESTINAL Hx Gastrointestinal Disorders: No - GENITOURINARY/GYNECOLOGICAL Hx Genitourinary Disorders: No - PSYCHIATRIC Hx Anxiety: Yes Hx Substance Use: No - SURGICAL HISTORY Hx Surgeries: Yes Other/Comment: A/V FISTULA LEFT ARM - ANESTHESIA Hx Anesthesia: Yes Hx Anesthesia Reactions: No Hx Malignant Hyperthermia: No Has any member of the family had a problem w/ anesthesia?: No Meds Allergies/Adverse Reactions: Allergies Allergy/AdvReac Type Severity Reaction Status Date / Time No Known Allergies Allergy Verified 10/18/16 10:42 - Medications Medications: Current Medications Amlodipine Besylate (Norvasc) 5 mg PO DAILY [facility] Last Admin: 10/19/16 10:06 Dose: 5 mg Calcitriol (Rocaltrol) 0.25 mcg PO BID [facility] Last Admin: 10/19/16 10:06 Dose: 0.25 mcg Docusate Sodium (Colace) 100 mg PO BID [facility] Last Admin: 10/19/16 10:06 Dose: 100 mg Enoxaparin Sodium (Lovenox) 30 mg SC Q24H [facility] Famotidine (Pepcid) 20 mg IVP DAILY [facility] Last Admin: 10/19/16 10:06 Dose: 20 mg Ferrous Sulfate (Feosol) 325 mg PO DAILY [facility] Last Admin: 10/19/16 10:06 Dose: 325 mg Ondansetron HCl (Zofran Inj) 4 mg IVP Q6 PRN PRN Reason: Nausea/Vomiting Sodium Bicarbonate (Sodium Bicarbonate Tab) 1,300 mg PO TID [facility] Tramadol HCl (Ultram) 25 mg PO TID PRN PRN Reason: Pain, moderate (4-7) Last Admin: 10/18/16 21:49 Dose: 25 mg Physical Exam - Constitutional Appears: No Acute Distress - Head Exam Head Exam: ATRAUMATIC, NORMOCEPHALIC - Eye Exam Eye Exam: Normal appearance - ENT Exam ENT Exam: Mucous Membranes Moist - Neck Exam Neck exam: Positive for: Full Rom - Respiratory Exam Additional comments: Lungs clear - Cardiovascular Exam Cardiovascular Exam: REGULAR RHYTHM Additional comments: No rub - GI/Abdominal Exam GI & Abdominal Exam: Soft Additional comments: No tenderness - Extremities Exam Additional comments: No edema or cyanosis. Lt arm dressing is C&D Results - Vital Signs Recent Vital Signs: Last Vital Signs Temp 99 F 10/19/16 07:47 Pulse 87 10/19/16 07:47 Resp 20 10/19/16 07:47 BP 128/87 10/19/16 07:47 Pulse Ox 96 10/19/16 07:47 - Labs Result Diagrams: 10/19/16 07:13 10/19/16 07:13 Labs: Laboratory Results - last 24 hr 10/19/16 10/19/16 10/19/16 07:13 07:13 07:13 WBC 6.1 RBC 3.48 L Hgb 10.3 L Hct 31.6 L MCV 90.7 MCH 29.6 MCHC 32.6 L RDW 15.5 H Plt Count 355 MPV 7.0 L Neut % (Auto) 68.6 Lymph % (Auto) 22.2 [place] % (Auto) 7.6 Eos % (Auto) 1.2 Baso % (Auto) 0.4 Neut # 4.2 Lymph # 1.4 [place] # 0.5 Eos # 0.1 Baso # 0.0 Sodium 143 Potassium 4.4 Chloride 107 Carbon Dioxide 23 Anion Gap 17 BUN 35 H Creatinine 3.9 H Est GFR ( Amer) 16 Est GFR (Non-Af Amer) 13 Random Glucose 97 Calcium 9.4 Random Vancomycin 13.08 Assessment & Plan - Assessment and Plan (Free Text) Assessment: Stage 1V kidney dis HTN S/P I & D for dehiscence & infection of Lt arm wound Plan: Infectious dis consult is requested Renal function is stable. Continue to monitor
--- NOTE | 2016-10-19 12:53 | CP.PCM.CON ---
History of Present Illness - History of Present Illness History of Present Illness: S/P DRAINAGE LEFT AV FISTULA WOUND GROWING GRAM NEG AWAIT ID AND SENSITIVITY IV RX WILL BE NEEDED Past Patient History - Past Medical History & Family History Past Medical History?: Yes - Past Social History Smoking Status: Never Smoked - CARDIAC Hx Hypertension: Yes - PULMONARY Hx Respiratory Disorders: No - NEUROLOGICAL Hx Neurological Disorder: Yes (AUTISM) - HEENT Hx HEENT Problems: No - RENAL Hx Chronic Kidney Disease: Yes Type of Dialysis Access: Left Arm AV Shunt - ENDOCRINE/METABOLIC Hx Endocrine Disorders: No - HEMATOLOGICAL/ONCOLOGICAL Hx Blood Disorders: No - INTEGUMENTARY Hx Dermatological Problems: No - MUSCULOSKELETAL/RHEUMATOLOGICAL Hx Falls: No - GASTROINTESTINAL Hx Gastrointestinal Disorders: No - GENITOURINARY/GYNECOLOGICAL Hx Genitourinary Disorders: No - PSYCHIATRIC Hx Anxiety: Yes Hx Substance Use: No - SURGICAL HISTORY Hx Surgeries: Yes Other/Comment: A/V FISTULA LEFT ARM - ANESTHESIA Hx Anesthesia: Yes Hx Anesthesia Reactions: No Hx Malignant Hyperthermia: No Has any member of the family had a problem w/ anesthesia?: No Meds Allergies/Adverse Reactions: Allergies Allergy/AdvReac Type Severity Reaction Status Date / Time No Known Allergies Allergy Verified 10/18/16 10:42 - Medications Medications: Current Medications Amlodipine Besylate (Norvasc) 5 mg PO DAILY [facility] Last Admin: 10/19/16 10:06 Dose: 5 mg Calcitriol (Rocaltrol) 0.25 mcg PO BID [facility] Last Admin: 10/19/16 10:06 Dose: 0.25 mcg Docusate Sodium (Colace) 100 mg PO BID [facility] Last Admin: 10/19/16 10:06 Dose: 100 mg Enoxaparin Sodium (Lovenox) 30 mg SC Q24H [facility] Famotidine (Pepcid) 20 mg IVP DAILY [facility] Last Admin: 10/19/16 10:06 Dose: 20 mg Ferrous Sulfate (Feosol) 325 mg PO DAILY [facility] Last Admin: 10/19/16 10:06 Dose: 325 mg Ondansetron HCl (Zofran Inj) 4 mg IVP Q6 PRN PRN Reason: Nausea/Vomiting Sodium Bicarbonate (Sodium Bicarbonate Tab) 1,300 mg PO TID [facility] Tramadol HCl (Ultram) 25 mg PO TID PRN PRN Reason: Pain, moderate (4-7) Last Admin: 10/18/16 21:49 Dose: 25 mg Results - Vital Signs Recent Vital Signs: Last Vital Signs Temp 99 F 10/19/16 07:47 Pulse 87 10/19/16 07:47 Resp 20 10/19/16 07:47 BP 128/87 10/19/16 07:47 Pulse Ox 96 10/19/16 07:47 - Labs Result Diagrams: 10/19/16 07:13 10/19/16 07:13 Labs: Laboratory Results - last 24 hr 10/19/16 10/19/16 10/19/16 07:13 07:13 07:13 WBC 6.1 RBC 3.48 L Hgb 10.3 L Hct 31.6 L MCV 90.7 MCH 29.6 MCHC 32.6 L RDW 15.5 H Plt Count 355 MPV 7.0 L Neut % (Auto) 68.6 Lymph % (Auto) 22.2 [place] % (Auto) 7.6 Eos % (Auto) 1.2 Baso % (Auto) 0.4 Neut # 4.2 Lymph # 1.4 [place] # 0.5 Eos # 0.1 Baso # 0.0 Sodium 143 Potassium 4.4 Chloride 107 Carbon Dioxide 23 Anion Gap 17 BUN 35 H Creatinine 3.9 H Est GFR ( Amer) 16 Est GFR (Non-Af Amer) 13 Random Glucose 97 Calcium 9.4 Random Vancomycin 13.08
[2016-10-19] MEDS: Tramadol 25 mg PO PRN (13:51)
[2016-10-19] MEDS: Piperacill/Tazo 2.25gm in Dex 2.25 GM/50 ML BAG IVPB SCH ×2 (13:55→21:27)
[2016-10-19] MEDS ORDERED: Bacitracin 500 Units/gm Oint Foilpak UD TOP ONE (15:35)
[2016-10-19] MEDS ORDERED: Enoxaparin 30 mg Syringe SC SCH (22:00)
[2016-10-20] MEDS: Piperacill/Tazo 2.25gm in Dex 2.25 GM/50 ML BAG IVPB SCH ×2 (01:05→08:55)
[2016-10-20 08:40] VITALS: BP 152/103; PULSE 89; TEMP 98.4
--- NOTE | 2016-10-20 23:44 | CP.PCM.PN ---
Subjective - Date & Time of Evaluation Date of Evaluation: 10/19/16 - Subjective Subjective: NO DISTRESS, NO SOB, NO COUGH , S/P OR Objective - Vital Signs/Intake and Output Vital Signs (last 24 hours): Temp Pulse Resp BP Pulse Ox 98.4 F 89 20 152/103 H 98 10/20/16 08:00 10/20/16 08:00 10/20/16 08:00 10/20/16 08:00 10/20/16 08:00 Intake and Output: 10/20/16 10/21/16 18:59 06:59 Intake Total 350 Balance 350 - Labs Labs: 10/19/16 07:13 10/19/16 07:13 - Constitutional Appears: Non-toxic, No Acute Distress - Head Exam Head Exam: ATRAUMATIC, NORMAL INSPECTION, NORMOCEPHALIC - Eye Exam Eye Exam: EOMI, Normal appearance, PERRL Pupil Exam: NORMAL ACCOMODATION - ENT Exam ENT Exam: Mucous Membranes Moist, Normal Exam, Normal Oropharynx, TM's Normal Bilaterally - Neck Exam Neck Exam: Normal Inspection - Respiratory Exam Respiratory Exam: NORMAL BREATHING PATTERN - Cardiovascular Exam Cardiovascular Exam: REGULAR RHYTHM, +S1, +S2 - GI/Abdominal Exam GI & Abdominal Exam: Soft, Normal Bowel Sounds - Rectal Exam Rectal Exam: NORMAL INSPECTION - Extremities Exam Extremities Exam: Normal Capillary Refill - Neurological Exam Neurological Exam: Alert, Altered, CN II-XII Intact, Normal Gait, Oriented x3 Assessment and Plan (1) Autism Status: Chronic (2) ESRD (end stage renal disease) Status: Chronic (3) Hypertension Status: Chronic (4) Post-operative infection Status: Acute
--- NOTE | 2016-10-20 23:45 | CP.PCM.PN ---
Subjective - Subjective Subjective: FOR DISCHARGE SEEN BY DR DIXON Objective - Vital Signs/Intake and Output Vital Signs (last 24 hours): Temp Pulse Resp BP Pulse Ox 98.4 F 89 20 152/103 H 98 10/20/16 08:00 10/20/16 08:00 10/20/16 08:00 10/20/16 08:00 10/20/16 08:00 Intake and Output: 10/20/16 10/21/16 18:59 06:59 Intake Total 350 Balance 350 - Labs Labs: 10/19/16 07:13 10/19/16 07:13 - Constitutional Appears: Non-toxic, Younger Than Stated Age - Head Exam Head Exam: ATRAUMATIC, NORMAL INSPECTION, NORMOCEPHALIC - Eye Exam Eye Exam: EOMI, Normal appearance, PERRL Pupil Exam: NORMAL ACCOMODATION - ENT Exam ENT Exam: Mucous Membranes Moist, Normal Exam, Normal Oropharynx, TM's Normal Bilaterally - Neck Exam Neck Exam: Normal Inspection - Respiratory Exam Respiratory Exam: Clear to Ausculation Bilateral, NORMAL BREATHING PATTERN - Cardiovascular Exam Cardiovascular Exam: REGULAR RHYTHM, +S1, +S2 - GI/Abdominal Exam GI & Abdominal Exam: Soft, Normal Bowel Sounds - Rectal Exam Rectal Exam: NORMAL INSPECTION - Extremities Exam Extremities Exam: Normal Capillary Refill - Neurological Exam Neurological Exam: Alert, Awake, CN II-XII Intact, Normal Gait (AUTISTIC), Oriented x3 Assessment and Plan (1) Autism Status: Chronic (2) ESRD (end stage renal disease) Status: Chronic (3) Hypertension Status: Chronic (4) Post-operative infection Status: Acute
[2016-10-22 11:28] VITALS: O2SAT 100
== END 2016-10-20 13:00 | disposition home or self-care (01) | DRG 252 ==
LOC: C.ER 10:32 → C.9E 12:05 → C.ER 12:06 → C.5T 16:40
PROVIDERS: ADMIT Surgery; ATTEND Surgery
PROC: 0HXEXZZ Transfer Left Lower Arm Skin, External Approach (ICD-10-PCS; 2016-10-18)
PROC: 04WY07Z Revision of Autologous Tissue Substitute in Lower Artery, Open Approach (ICD-10-PCS; principal; 2016-10-18 12:30)
DX: T82.7XXA Infection and inflammatory reaction due to other cardiac and vascular devices, implants and grafts, initial encounter (principal); N18.6 End stage renal disease; T81.30XA Disruption of wound, unspecified, initial encounter; I12.0 Hypertensive chronic kidney disease with stage 5 chronic kidney disease or end stage renal disease; F84.0 Autistic disorder; F41.9 Anxiety disorder, unspecified; Y83.2 Surgical operation with anastomosis, bypass or graft as the cause of abnormal reaction of the patient, or of later complication, without mention of misadventure at the time of the procedure; Z99.2 Dependence on renal dialysis